=== PATIENT | male | born 1995 | race Two or more races ===

== ENCOUNTER 2021-05-25 17:05 | Emergency (ER) | payer OTHER ==
[~2021-05-25] VITALS: Ht 198.1 cm; Wt 113.4 kg
[2021-05-25] MEDS ORDERED: LIDOCAINE W/ EPINEPHRINE 1% 20ML VIAL ONE (21:56)
[2021-05-25] MEDS ORDERED: LIDOCAINE 1% HCL (LOCAL ANESTH.) INJ 20ML MDV ONE (22:05)
[2021-05-25 23:00] VITALS: BP 147/86
[2021-05-25] MEDS ORDERED: LIDOCAINE 1% HCL (LOCAL ANESTH.) INJ 20ML MDV ID ONE (23:45)
== END 2021-05-25 22:42 | disposition home or self-care (01) ==
LOC: ER 17:05
DX: S81.012A Laceration without foreign body, left knee, initial encounter (principal); V29.49XA Motorcycle driver injured in collision with other motor vehicles in traffic accident, initial encounter; Y93.89 Activity, other specified; Y92.410 Unspecified street and highway as the place of occurrence of the external cause; Y99.8 Other external cause status
CPT/HCPCS: 12002; 73070; 73560; 99284; J2001